=== PATIENT | female | born 1970 | race Caucasian/White ===

== ENCOUNTER → 2019-06-02 10:43 | Outpatient (CLI) | payer OTHER, SELFPAY ==
[2019-06-02 11:49] LABS: Hemoglobin A1c 8.1 % (4.2-6.3)
[2019-06-02 12:02] LABS: Albumin, Serum 3.5 g/dL (3.2-5.0); BUN 10 mg/dL (7-18); BUN/Creat Ratio 19.2 RATIO (10-20); Creatinine, Serum 0.52 mg/dL (0.55-1.02); EST Glomerular Filtration Rate 134 mL/min (>60); Est Glom Filt Rate - Afr Amer 162 mL/min (>60); Glucose 230 mg/dL (74-106); Protein, Total 7.3 g/dL (6.4-8.2); Uric Acid 4.7 mg/dL (2.6-6.0)
[2019-06-02 12:03] LABS: ALB/GLOB Ratio 0.9 RATIO (0.9-2.4); AST(SGOT) 14 U/L (15-37); Alanine Aminotransfer ALT/SGPT 24 U/L (13-56); Alkaline Phosphatase 99 U/L (45-117); Anion Gap 7 (5-15); Calcium,Total 8.6 mg/dL (8.5-10.1); Chloride 102 mmol/L (98-107); Cholesterol 222 mg/dL (200); Globulin 3.8 g/dL (2.2-4.2); High Density Lipoprotein 50 mg/dL; Magnesium 1.9 mg/dL (1.6-2.6); Potassium 4.2 mmol/L (3.5-5.1); Sodium Level 137 mmol/L (136-145); Thyroid Stim Hormone (TSH) 1.58 uIU/mL (0.358-3.74); Triglycerides 251 mg/dL; Very Low Density Lipoprotein 50 mg/dL (5-40)
== END ==
PROVIDERS: PCP Family Medicine; Referring Provider Family Medicine; Visit Provider Family Medicine
DX: E11.9 Type 2 diabetes mellitus without complications (principal); I10 Essential (primary) hypertension; E78.5 Hyperlipidemia, unspecified; M10.9 Gout, unspecified; R53.82 Chronic fatigue, unspecified; Z13.220 Encounter for screening for lipoid disorders; Z13.29 Encounter for screening for other suspected endocrine disorder
CPT/HCPCS: 36415; 80053; 80061; 83036; 83735; 84443; 84550

== ENCOUNTER → 2019-09-21 15:58 | Outpatient (CLI) | payer OTHER, SELFPAY ==
--- NOTE | 2019-09-21 16:12 | RAD_ITS ---
STUDY: X-RAY - LUMBAR SPINE REASON FOR EXAM: Female, 49 years old. CHRONIC LOWER BACK PAIN FOR ABOUT 2 YEARS PER PATIENT TECHNIQUE: 3 view(s) of the lumbar spine were obtained. COMPARISON: None FINDINGS: There is straightening of the normal lumbar lordosis. There is no substantial scoliosis. There is a normal alignment of the vertebrae. There is multilevel endplate spondylosis of the lumbar vertebrae. Mild disc space narrowing throughout the lumbar spine. There is no demonstrated fracture. The soft tissue structures are unremarkable. RAD/Lumbar Spine 2 or 3 Views IMPRESSION: Degenerative changes of the spine, as detailed above. Electronically Signed: Adolfo Silverio MD at 8:22 EDT , Service support ,
--- NOTE | 2019-09-21 16:15 | RAD_ITS ---
STUDY: X-RAY - CERVICAL SPINE REASON FOR EXAM: Female, 49 years old. CHRONIC NECK PAIN FOR ABOUT 2 YEARS PER PATIENT TECHNIQUE: 3 view(s) of the cervical spine were obtained. COMPARISON: None FINDINGS: Normal anterior atlantoaxial articulation. Normal odontoid process. There is straightening of the normal cervical lordosis, this may be positional, or due to pain. Normal vertebral bodies and endplates. Mild disc space narrowing throughout the lower half of the cervical spine. The soft tissue structures are unremarkable. RAD/Cerv Spine 2 or 3 Views IMPRESSION: Mild degenerative changes in the lower half of the cervical spine, no demonstrated fracture or suspicious osseous lesion Electronically Signed: Adolfo Silverio MD at 8:23 EDT , Service support ,
== END ==
PROVIDERS: PCP Family Medicine; Referring Provider Anesthesiology Pain Medicine; Visit Provider Anesthesiology Pain Medicine
DX: M54.2 Cervicalgia (principal); M54.9 Dorsalgia, unspecified
CPT/HCPCS: 72040; 72100

== ENCOUNTER 2019-10-14 11:00 | Outpatient (RCR) | payer MEDICAID, SELFPAY ==
--- NOTE | 2019-10-07 18:03 | HP.PTEVAL ---
Patient's Visit Information ALY SPENCER is a 49 year old F referred to Physical Therapy by Dr. Santhosh Elder MD with a diagnosis of back and neck pain. Date of Evaluation: 10/07/19 Physical Therapist: SHERMAN Gonzalez - Visit Plan Frequency: 2x /Week Duration: 6 Weeks Plan: 2X/ week for 6 weeks for AT for core stability, postural exercises, LE strength including feet strengthening, general mobility with HEP and possibly land based home exercise program. - Subjective Patient has Fibro and it affects her entire body and has all 18 trigger points.... and she hurts really bad today. She had back x-rays done that showed mild degenerative changes. She was diagnosed with Fibro in 2017. She switched to Dr Elder for Fibro. She started seeing him and she is on mobic and weaning from hydrocodone. She has wide spread pain through out her body but her lower legs and her feet hurt the most. She has flat feet, arthritis, and neuropathy. She was seeing a podatrist and is going to start seeing a new one. She says that [employer] tub helps her sometimes. She drinks a lot of water. She has started alph lipoic acid and magnesium and started to send away for [facility] and [facility]. Neck pain and shoot pain especially into the R arm and N&T. Back pain.... yes N&T at night when her pain is high. She has a TENs unit that she uses and that does help. Stairs: trouble when she is stiff going up the stairs with 2 rails. She can not sit long... can sit for 30 min to an hour at most and then has to move. She is not sleeping through the night and she is always up to pee and then hard to get back to sleep and takes ambion before bed and sometimes that does not work. 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 light duty stuff. - Pain neck pain Pain Intensity (Out of 10): 3 Pain Intensity Range: 7 back pain Pain Intensity (Out of 10): 6 Pain Intensity Range: 9 - Objective Gait: Walks with equal stance time on B legs. [place] stride. No veering. Trunk AROM: flexion 50%, ext 50%, SB B 50%, Rot B 50%. LE MMT: hip flex B 3/4, knee ext B 4/5, knee flex B 4/5, hip abd 4-/5 B, 1/2 normal ROM bridge, pt is able to heel and toe raise but has trouble walking on her toes due to foot pain. C-spine AROM: flexion 100%, ext 50%, SB B 75%, Rot B 75%. UE AROM: full rom. UE MMT: grossly 4-/5 shld flex, abd, IR/ER - Goals Goal 1:: I HEP to learn self management of Fibro Goal Time Frame: 4-6 Weeks Goal 2:: Increase UE/LE strength by 1/2 muscle grade (at time of eval: LE MMT: hip flex B 3/4, knee ext B 4/5, knee flex B 4/5, hip abd 4-/5 B, 1/2 normal ROM bridge, pt is able to heel and toe raise but has trouble walking on her toes due to foot pain and UE MMT: grossly 4-/5 shld flex, abd, IR/ER). Goal Time Frame: 4-6 Weeks Goal 3:: Decrease neck and back pain to 2/10 with ADL's 5/7 days of the week Goal Time Frame: 4-6 Weeks - Rehabilitation Potential Rehabilitation Potential: Good - Anticipated Interventions Patient/Client Instruction: Educate patient on: Condition, Plan of Care For the Purpose of:: To decrease pain, To increase ROM, To improve nutrient delivery to tissue, To increase oxygenation perfusion, To improve muscle performance and motor function, To improve ability to perform ADL's, To increase tolerance to activity/condition/position, To improve gait and locomotor functions, To improve health of tissue, To decrease soft tissue restriction, To increase flexibility/ROM Therapeutic Exercise to Include: Strength training, Postural training, Flexibilty training, Relaxation training, In an aquatic setting, Passive ROM, Active ROM, Dynamic Lumbar Stabilization, Scapular Strength/Stabilization For the Purpose of:: To decrease pain, To increase ROM, To improve nutrient delivery to tissue, To improve muscle performance and motor function, To improve ability to perform ADL's, To increase tolerance to activity/condition/position, To improve performance and independence with ADL's, To decrease level of supervision to perform tasks, To improve ability of physical actions for home/community/work/leisure, To improve health of tissue, To decrease soft tissue restriction, To increase flexibility/ROM Thank you for the opportunity to evaluate your patient. For Medicare and Medicare HMO plans, please review the plan of care and approve it. It will need to be FAXED BACK to us at [phone] for Medicare purposes. For Medicare only, by signing this I certify the plan of care. Please let me know if there are questions or concerns regarding this plan of care. Physician Signature: Date:
--- NOTE | 2020-01-20 13:09 | HP.PT.NRP ---
ALY SPENCER was seen in my office for initial evaluation on 10/07/19. The following Plan of Care was established for this patient: Initial Frequency: 2x /Week Initial Duration: 6 Weeks Patient/Client Instruction: Educate patient on: Condition, Plan of Care For the Purpose of:: To decrease pain, To increase ROM, To improve nutrient delivery to tissue, To increase oxygenation perfusion, To improve muscle performance and motor function, To improve ability to perform ADL's, To increase tolerance to activity/condition/position, To improve gait and locomotor functions, To improve health of tissue, To decrease soft tissue restriction, To increase flexibility/ROM Therapeutic Exercise to Include: Strength training, Postural training, Flexibilty training, Relaxation training, In an aquatic setting, Passive ROM, Active ROM, Dynamic Lumbar Stabilization, Scapular Strength/Stabilization For the Purpose of:: To decrease pain, To increase ROM, To improve nutrient delivery to tissue, To improve muscle performance and motor function, To improve ability to perform ADL's, To increase tolerance to activity/condition/position, To improve performance and independence with ADL's, To decrease level of supervision to perform tasks, To improve ability of physical actions for home/community/work/leisure, To improve health of tissue, To decrease soft tissue restriction, To increase flexibility/ROM This patient was last seen in our office 10/14/19. Pertinent comments regarding their Physical therapy will appear below: [facility] PT as pt was bitten by a brown recluse spider. At this point I will be discontinuing this patient from physical therapy. I would be happy to see this patient again in the future if found appropriate by the physician. Thank you! Maria T Julian, MPT
== END 2019-10-14 19:00 | disposition home or self-care (01) ==
LOC: PT 11:00
PROVIDERS: PCP Family Medicine; Referring Provider Anesthesiology Pain Medicine; Visit Provider Anesthesiology Pain Medicine
DX: M54.2 Cervicalgia (principal); M54.9 Dorsalgia, unspecified
CPT/HCPCS: 97113; 97161

== ENCOUNTER → 2021-02-21 09:52 | Outpatient (CLI) | payer MEDICAID, SELFPAY ==
[2021-02-21 11:53] LABS: Amphetamine Urine VISTA NEGATIVE (<1000 ng/mL); Barbiturate Urine VISTA NEGATIVE (< 200 ng/mL); Benzodiazepine Urine VISTA NEGATIVE (< 200 ng/mL); Cocaine Urine VISTA NEGATIVE (< 300 ng/mL); Ecstacy Urine VISTA NEGATIVE (< 500 ng/mL); Methadone Urine VISTA NEGATIVE (< 300 ng/mL); PCP Urine VISTA NEGATIVE (< 25 ng/mL); THC Urine VISTA NEGATIVE (< 50 ng/mL); Vista UDS pH Range 5
== END ==
PROVIDERS: PCP Family Medicine; Visit Provider Anesthesiology Pain Medicine
DX: F11.20 Opioid dependence, uncomplicated (principal)
CPT/HCPCS: 80307